=== PATIENT | male | born 1945 | race Caucasian/White ===

== ENCOUNTER 2023-09-06 09:26 | Emergency (ER) | payer OTHER, BC ==
[~2023-09-06] VITALS: Ht 177.8 cm; Wt 77.1 kg
[2023-09-06] MEDS ORDERED: ADCIRCA20 MG (09:52)
[2023-09-06] MEDS ORDERED: 0.9 % SODIUM CHLORIDE 1 ML IV ONE (10:30)
[2023-09-06 10:42] LABS: PH,URINE 5.5 (5.0-8.0); URINE APPEARANCE Clear; URINE BILIRRUBIN Negative (NEGATIVE); URINE BLOOD Large; URINE COLOR Yellow; URINE GLUCOSE Negative (NEGATIVE); URINE LEUKOCYTE Trace; URINE NITRATE Negative; URINE PROTEIN Trace (NEGATIVE); URINE UROBILINOGEN 0.2 E.U./dl
[2023-09-06 10:43] LABS: URINE RBC 25.7 uL (0.0-20.8); URINE WBC 8.1 uL (0.0-23.2)
[2023-09-06 10:59] LABS: HEMATOCRIT 47.4 % (39.0-48.0); HEMOGLOBIN 16.2 g/dL (13-16.00); MEAN CELL VOLUME 92.7 fL (80.0-100.00); MEAN CORPUSCULAR HEMOGLOBIN 31.6 pg (27.00-32.0); MEAN CORPUSCULAR HGB CONC 34.1 g/dl (32.0-36.0); PLATELET COUNT 267 K/uL (150-450); RED BLOOD COUNT 5.12 M/uL (4.00-6.00); RED CELL DISTRIBUTION WIDTH 13.7 % (11.5-14.5)
[2023-09-06 11:03] LABS: URINE EPITHELIAL CELLS 0.9 uL (0.0-38.8)
[2023-09-06 11:25] LABS: ALBUMIN 3.8 gm/dL (3.4-5.0); CKMB 3.1 NG/ML (0.5-3.6); CREATININE SERUM 1.06 mg/dL (0.70-1.30); GFR 67.39; PHOSPHOROUS 2.6 mg/dL (2.5-4.9); POTASSIUM 4.3 mEq/L (3.5-5.1)
== END 2023-09-06 12:19 | disposition home or self-care (01) ==
LOC: ER 09:26
PROVIDERS: General Practice
DX: E86.0 Dehydration (principal)
CPT/HCPCS: 36415; 96365; 99283; J7030

== ENCOUNTER 2023-10-02 12:23 | Emergency (ER) | payer OTHER, BC ==
[~2023-10-02] VITALS: Ht 177.8 cm; Wt 77.1 kg
[~2023-10-02 12:23] MED LIST: ADCIRCA20 MG
[2023-10-02] MEDS ORDERED: DEXTROSE 5 % AND 0.9 % NACL 500 ML IV STA (13:51)
[2023-10-02 14:44] LABS: URINE APPEARANCE Clear; URINE BILIRRUBIN Negative (NEGATIVE); URINE BLOOD Negative; URINE COLOR Yellow; URINE GLUCOSE Negative (NEGATIVE); URINE LEUKOCYTE Negative; URINE NITRATE Negative; URINE PROTEIN Negative (NEGATIVE); URINE UROBILINOGEN 0.2 E.U./dl
[2023-10-02 14:45] LABS: URINE BACTERIA 11.3 uL (0.0-1933); URINE EPITHELIAL CELLS 1.5 uL (0.0-38.8); URINE RBC 3.1 uL (0.0-20.8); URINE WBC 3.3 uL (0.0-23.2)
[2023-10-02 14:52] LABS: HEMATOCRIT 46.4 % (39.0-48.0); HEMOGLOBIN 15.9 g/dL (13-16.00); MEAN CELL VOLUME 90.4 fL (80.0-100.00); MEAN CORPUSCULAR HEMOGLOBIN 30.9 pg (27.00-32.0); MEAN CORPUSCULAR HGB CONC 34.2 g/dl (32.0-36.0); PLATELET COUNT 264 K/uL (150-450); RED BLOOD COUNT 5.13 M/uL (4.00-6.00); RED CELL DISTRIBUTION WIDTH 13.8 % (11.5-14.5)
[2023-10-02 15:07] LABS: CREATININE SERUM 0.97 mg/dL (0.70-1.30); GFR 74.66; POTASSIUM 4.03 mEq/L (3.5-5.1)
[2023-10-02 17:58] LABS: ALBUMIN 3.5 gm/dL (3.4-5.0); BILIRUBIN TOTAL 0.38 mg/dL (0.3-1.2); CALCIUM 9.4 mg/dL (8.5-10.1); CREATININE SERUM 0.87 mg/dL (0.70-1.30); GFR 84.65; GLOBULINA 3.6 G/DL (2.4-3.5); POTASSIUM 4.31 mEq/L (3.5-5.1); TOTAL PROTEIN 7.1 gm/dL (6.4-8.2)
== END 2023-10-02 18:49 | disposition home or self-care (01) ==
LOC: ER 12:23
PROVIDERS: Emergency Medicine
DX: G44.309 Post-traumatic headache, unspecified, not intractable (principal); R42 Dizziness and giddiness
CPT/HCPCS: 36415; 70450; 96365; 96366; 99284; J3490